=== PATIENT | female | born 2000 | race African-American/Black ===

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

== ENCOUNTER 2020-10-10 15:33 | Emergency (ER) | payer OTHER ==
[2020-10-10 15:40] VITALS: BP 102/67; PULSE 82; TEMP 98.1; BMI 20.3
[2020-10-10] MEDS ORDERED: AMOX TR/POT CLAV 875MG/125MG TABLETS (FP) PO ONE (16:45)
[2020-10-10] MEDS ORDERED: AMOX TR/POT CLAV 875MG/125MG TABLETS (FP) ONE (16:47)
== END 2020-10-10 16:54 | disposition home or self-care (01) ==
LOC: JER 15:33 → JERFT 15:33
DX: N75.8 Other diseases of Bartholin's gland (principal)
CPT/HCPCS: 36415; 84703; 87070; 87205; 87491; 87591; 99283-25

== ENCOUNTER 2020-10-19 23:00 | Emergency (ER) | payer OTHER ==
[2020-10-19 23:24] VITALS: BP 102/66; PULSE 81; TEMP 97.7; BMI 20.3
[2020-10-20] MEDS ORDERED: ACETAMINOPHEN 500 MG TABLET (FP) PO ONE (00:22)
[2020-10-20] MEDS ORDERED: ACETAMINOPHEN 325 MG TABLET (FP) ONE (00:27)
== END 2020-10-20 00:41 | disposition home or self-care (01) ==
LOC: JER 23:00
DX: N75.0 Cyst of Bartholin's gland (principal)
CPT/HCPCS: 99283-25

== ENCOUNTER 2020-10-20 17:32 | Emergency (ER) | payer OTHER ==
[2020-10-20 17:42] VITALS: BP 104/69; PULSE 98; TEMP 98.1; BMI 20.3
[2020-10-20] MEDS ORDERED: LIDOCAINE HCL 2% (20ML MULTI-DOSE VIAL) ONE (18:35)
== END 2020-10-20 19:01 | disposition home or self-care (01) ==
LOC: JER 17:32 → JERFT 17:32
DX: N75.0 Cyst of Bartholin's gland (principal)
CPT/HCPCS: 99283-25

== ENCOUNTER 2021-05-28 16:41 | Emergency (ER) | payer OTHER ==
[2021-05-28 16:56] VITALS: BP 105/71; PULSE 102; TEMP 97.8; BMI 20.3
[2021-05-28] MEDS ORDERED: KETOROLAC TROMETHAMINE 30 MG/1 ML VIAL IM ONE (17:41)
[2021-05-28] MEDS ORDERED: KETOROLAC TROMETHAMINE 30 MG/1 ML VIAL ONE (17:44)
== END 2021-05-28 18:36 | disposition home or self-care (01) ==
LOC: JER 16:41 → JERFT 16:41
PROC: 3E0233Z Introduction of Anti-inflammatory into Muscle, Percutaneous Approach (ICD-10-PCS; principal; 2021-05-28)
DX: N75.1 Abscess of Bartholin's gland (principal)
CPT/HCPCS: 87070; 87077; 87205; 99283-25

== ENCOUNTER 2021-06-07 17:54 | Emergency (ER) | payer OTHER ==
[2021-06-07 18:13] VITALS: BP 124/78; PULSE 75; TEMP 97.6; BMI 20.3
== END 2021-06-07 20:55 | disposition home or self-care (01) ==
LOC: JERFT 17:54
DX: Z48.00 Encounter for change or removal of nonsurgical wound dressing (principal)
CPT/HCPCS: 99281-25

== ENCOUNTER 2021-12-28 06:36 | Emergency (ER) | payer OTHER ==
[2021-12-28 07:11] VITALS: BP 110/74; PULSE 75; RESP 16; TEMP 98.2; BMI 20.3
== END 2021-12-28 08:04 | disposition home or self-care (01) ==
LOC: JER 06:36
DX: H10.32 Unspecified acute conjunctivitis, left eye (principal); H00.025 Hordeolum internum left lower eyelid; J02.9 Acute pharyngitis, unspecified
CPT/HCPCS: 87070; 87651; 99283-25

== ENCOUNTER 2022-05-22 14:11 | Emergency (ER) | payer OTHER ==
[2022-05-22 14:17] VITALS: BP 113/66; PULSE 104; RESP 18; TEMP 98.8; BMI 20.3
[2022-05-22] MEDS ORDERED: IBUPROFEN 600 MG TABLET (FP) PO ONE ×2 (15:01→15:09)
[2022-05-22] MEDS ORDERED: ACETAMINOPHEN 500 MG TABLET (FP) PO ONE (15:01)
[2022-05-22] MEDS ORDERED: DEXAMETHASONE LIQUID 0.5 MG/5 ML PO ONE (15:01)
[2022-05-22] MEDS ORDERED: ACETAMINOPHEN 500 MG TABLET (FP) ONE (15:09)
[2022-05-22] MEDS ORDERED: DEXAMETHASONE SOD PHOSPHATE 10 MG/1 ML VIAL ONE (15:09)
[2022-05-22 15:50] LABS: THROAT:GRP A STREP DETECTED (NOTDETECTED)
== END 2022-05-22 15:39 | disposition home or self-care (01) ==
LOC: JERFT 14:11 → JER 14:11 → JERFT 15:39
DX: J02.0 Streptococcal pharyngitis (principal)
CPT/HCPCS: 0241U-QW; 87651; 99283-25

== ENCOUNTER 2022-07-25 18:53 | Emergency (ER) | payer OTHER ==
[2022-07-25 19:03] VITALS: BP 105/68; PULSE 95; RESP 16; TEMP 98.6; BMI 21.9
== END 2022-07-25 21:00 | disposition home or self-care (01) ==
LOC: JERFT 18:53
DX: M25.561 Pain in right knee (principal); X50.9XXA Other and unspecified overexertion or strenuous movements or postures, initial encounter; Y93.41 Activity, dancing
CPT/HCPCS: 99282-25

== ENCOUNTER 2023-07-04 17:56 | Emergency (ER) | payer SELFPAY ==
[2023-07-04 18:26] VITALS: BP 103/63; PULSE 82; RESP 17; TEMP 98.1; BMI 22.1
[2023-07-04] MEDS: ACETAMINOPHEN 500 MG TABLET (FP) PO ONE (19:15)
== END 2023-07-04 21:16 | disposition home or self-care (01) ==
LOC: JERFT 17:56
DX: M25.561 Pain in right knee (principal); S80.01XA Contusion of right knee, initial encounter; X58.XXXA Exposure to other specified factors, initial encounter; Y99.0 Civilian activity done for income or pay
CPT/HCPCS: 73562-TC-RT-FY; 99283-25